=== PATIENT | female | born 2000 | race Caucasian/White ===

== ENCOUNTER 2021-05-27 02:07 | Emergency (ER) | payer OTHER ==
[~2021-05-27 02:07] MED LIST: MEDROL DOSEPAK 24 MG PO; PROAIR DIGIHAL90 MCG INH; TESSALON PERLE100 MG PO
[2021-05-27 02:57] LABS: BUN/CREATININE RATIO 18 (0-10)
[2021-05-27 03:06] LABS: HEMOGLOBIN 14.3 gm/dl (12.3-15.3); RED BLOOD COUNT 4.96 M/UL (4.00-5.10); WHITE BLOOD COUNT 12.6 K/UL (4.5-11.0)
[2021-05-27] MEDS ORDERED: LODINE CAP 300300 MG PO (05:17)
[2021-05-27] MEDS ORDERED: OMNICEF 300 MG300 MG PO (05:17)
[2021-05-27] MEDS ORDERED: ZOFRAN ODT 4 MG4 MG PO (05:17)
== END 2021-05-27 05:30 | disposition home or self-care (01) ==
LOC: ER1 02:07
PROVIDERS: Physician Assistant
DX: N10 Acute pyelonephritis (principal); N83.201 Unspecified ovarian cyst, right side; F17.210 Nicotine dependence, cigarettes, uncomplicated
CPT/HCPCS: 80053; 81001; 83605; 83690; 84703; 85025; 87040; 87077; 87086; 87186; 96374; 96375; 99284; J0696; J1885; J2405; Q9967

== ENCOUNTER → 2021-07-23 21:43 | Emergency (ER) | payer OTHER ==
[~2021-07-23 21:43] MED LIST changes: +AUGMENTIN 875-1 EACH PO; +IBUPROFEN600 MG PO; +LODINE CAP 300300 MG PO; +OMNICEF 300 MG300 MG PO; +ZOFRAN ODT 4 MG4 MG PO
[2021-07-23 22:59] LABS: HEMOGLOBIN 14.9 gm/dl (12.3-15.3); RED BLOOD COUNT 5.28 M/UL (4.00-5.10); WHITE BLOOD COUNT 11.6 K/UL (4.5-11.0)
[2021-07-23 23:22] LABS: BUN/CREATININE RATIO 16 (0-10)
== END | disposition home or self-care (01) ==
LOC: ER1 21:43
PROVIDERS: Physician Assistant
DX: K05.30 Chronic periodontitis, unspecified (principal)
CPT/HCPCS: 70487; 80048; 85025; 99284; Q9967

== ENCOUNTER 2021-07-30 15:38 | Emergency (ER) | payer OTHER ==
[2021-07-30 16:29] LABS: HEMOGLOBIN 13.7 gm/dl (12.3-15.3); RED BLOOD COUNT 4.72 M/UL (4.00-5.10)
[2021-07-30 17:15] LABS: BUN/CREATININE RATIO 13 (0-10)
[2021-07-30] MEDS ORDERED: ZOFRAN ODT 4 MG4 MG GT (18:36)
[2021-07-30] MEDS ORDERED: MACROBID 100 M100 MG PO (18:36)
[2021-07-30] MEDS ORDERED: MACROBID 100 M100 M1 PO (19:18)
[2021-07-30] MEDS ORDERED: ONDANSETRON ODT4 MG PO (19:18)
== END 2021-07-30 19:10 | disposition home or self-care (01) ==
LOC: ER1 15:38
PROVIDERS: Emergency Medicine
DX: R11.2 Nausea with vomiting, unspecified (principal); Z20.822 Contact with and (suspected) exposure to COVID-19
CPT/HCPCS: 0240U; 71045; 80053; 81001; 82962; 83605; 84703; 85025; 87040; 87077; 87081; 87086; 87186; 87880; 93005; 96374; 96375; 99284; J0696; J2405

== ENCOUNTER 2021-10-27 15:37 | Emergency (ER) | payer OTHER ==
[~2021-10-27 15:37] MED LIST changes: +MACROBID 100 M100 M1 PO; +MACROBID 100 M100 MG PO; +ONDANSETRON ODT4 MG PO; +ZOFRAN ODT 4 MG4 MG GT
== END 2021-10-27 18:10 | disposition left against medical advice (07) ==
LOC: ER1 15:37
DX: O99.891 Other specified diseases and conditions complicating pregnancy (principal); R10.30 Lower abdominal pain, unspecified; O99.331 Smoking (tobacco) complicating pregnancy, first trimester; F17.290 Nicotine dependence, other tobacco product, uncomplicated
CPT/HCPCS: 76817; 81001; 87077; 87086; 87186; 99283

== ENCOUNTER 2021-11-03 20:57 | Emergency (ER) | payer OTHER | END 2021-11-03 22:45 | disposition left against medical advice (07) | LOC: ER1 20:57 | DX: Z53.21 Procedure and treatment not carried out due to patient leaving prior to being seen by health care provider (principal) ==